=== PATIENT | male | born 1975 | race Caucasian/White ===

== ENCOUNTER 2016-07-23 10:32 | Emergency (ER) | payer SELFPAY ==
--- NOTE | 2016-07-24 09:22 | ER ---
ADMIT: 07/23/2016 RM/LOC: ER [facility] MR#: [id number] [address] [id number] JING JAVEDL [address] [place] [address] Emergency Room Report SEX: M AGE: 40 : 1975 DATE: 07/23/2016 ADDENDUM: CHIEF COMPLAINT: Cough and right rib pain. HISTORY OF PRESENT ILLNESS: This is a 40-year-old who has had a cough intermittently for the last month. He did have a fever for about a week when it started, now he just has remaining cough. Denies any shortness of breath, but he has developed a little bit of right lower rib pain. PHYSICAL EXAMINATION: His lungs are clear. His sats are 99% on room air. He is not tachypneic. He is not tachycardic. He does have minimal amount of tenderness when I palpate the right lower ribs. I told him just to continue ibuprofen for the pain, push fluids. Follow up with his primary care physician. Return to the ER if he develops any kind or shortness of breath. CLINICAL IMPRESSION: Pleurisy. JAYLEN Verduzco / Alfred Toney MD / manuell JOB #: [id number] CC: Alfred Toney MD, Attending Physician
== END 2016-07-23 11:20 | disposition home or self-care (01) ==
LOC: ER 10:32
DX: R09.1 Pleurisy (principal); I10 Essential (primary) hypertension; F17.210 Nicotine dependence, cigarettes, uncomplicated; Z79.899 Other long term (current) drug therapy